=== PATIENT | female | born 1990 | race Caucasian/White ===

== ENCOUNTER 2020-11-17 16:32 | Inpatient (IN) | payer MEDICAID ==
[~2020-11-17] VITALS: Ht 170.2 cm; Wt 58.8 kg
[2020-11-17] MEDS ORDERED: SODIUM CHLORIDE 0.9% 1,000ML IVBOLUS ONE (17:00)
[2020-11-17 17:22] LABS: BASOPHILS % (AUTO) 2 % (0-1); EOSINOPHILS % (AUTO) 4 % (1-7); LYMPHOCYTES % (AUTO) 36 % (22-44); MEAN CORPUSCULAR HEMOGLOBIN 21.9 pg (27.0-34.8); MEAN CORPUSCULAR HGB CONC 32.1 g/dL (32.4-35.8); MEAN PLATELET VOLUME 7.4 fL (7.4-10.4); MONOCYTES % (AUTO) 11 % (2-9); NEUTROPHILS % (AUTO) 47 % (42-75); PLATELET COUNT 402 x10^3/uL (130-400); RED CELL DISTRIBUTION WIDTH 18.1 % (9.6-15.2)
[2020-11-17 17:43] LABS: ANION GAP 10 mmol/L (5-15); CALCIUM 9.7 mg/dL (8.5-10.1); CHLORIDE 86 mmol/L (98-107); CREATININE 0.76 mg/dL (0.55-1.02)
[2020-11-17 17:44] LABS: ALBUMIN 4.1 g/dL (3.4-5.0); TROPONIN I < 0.015 ng/mL (0.000-0.045)
--- NOTE | 2020-11-17 17:48 | NUR ---
LAB CALLED TO COMMUNICATE CRITICAL POTASSIUM OF 2.2. ERP MADE AWARE TO REPLE/ ALSO TO REPLETE MAGNESIUM
--- NOTE | 2020-11-17 17:53 | NUR ---
POTASSIUM REQUESTED FROM PHARMACY
[2020-11-17] MEDS ORDERED: MAGNESIUM SULFATE PMX 2GM/50ML 50 ML ONE (17:57)
[2020-11-17] MEDS ORDERED: POTASSIUM CHLORIDE 40 MEQ in SODIUM CHLORIDE 0.9% 500 ML IV ONE (18:00)
[2020-11-17] MEDS ORDERED: MAGNESIUM SULFATE PMX 2GM/50ML 50 ML IV ONE (18:00)
--- NOTE | 2020-11-17 18:20 | NUR ---
ELECTROLYTES INFUSING, NO CHANGE IN EXAM (NO FURTHER NEUROLOGIC ABNORMALITIES) DRINKING/EATING
--- NOTE | 2020-11-17 18:50 | NUR ---
RECIEVED REPORT FROM BAYRON LORD
--- NOTE | 2020-11-17 19:00 | NUR ---
report to risa caballero
[2020-11-17 19:16] LABS: <PLATELET ESTIMATE> INCREASED; <PLT MORPHOLOGY> NORMAL PLT MORPH; MICROCYTOSIS 2+
[2020-11-17 19:17] LABS: HYPOCHROMIA 2+
--- NOTE | 2020-11-17 19:29 | NUR ---
PATIENT GIVEN FOOD AND JUICE, RESTING COMFORTABLY ON THE GURNEY. NAD AT THIS TIME. WILL CONTINUE TO MONITOR.
[2020-11-17] MEDS ORDERED: ENALAPRILAT 1.25 MG/ML, 2ML IVPush PRN (19:30)
[2020-11-17] MEDS ORDERED: POLYETHYLENE GLYCOL 17 GM PACKET PO PRN (19:30)
[2020-11-17] MEDS ORDERED: BISACODYL 10 MG SUPP PR PRN (19:30)
[2020-11-17] MEDS ORDERED: hydrALAzine 20 MG/ML, 1ML IVPush PRN (19:30)
[2020-11-17] MEDS ORDERED: ONDANSETRON ODT 4 MG PO PRN (19:30)
[2020-11-17] MEDS ORDERED: DOCUSATE 100 MG CAPSULE PO PRN (19:30)
[2020-11-17] MEDS ORDERED: IBUPROFEN 600 MG TABLET PO PRN (19:30)
[2020-11-17] MEDS ORDERED: ONDANSETRON 2MG/ML, 2ML IVPush PRN (19:30)
[2020-11-17] MEDS ORDERED: ENOXAPARIN 40 MG/0.4 ML SQ SCH (19:30)
[2020-11-17] MEDS ORDERED: ACETAMINOPHEN 325 MG TABLET PO PRN (19:30)
[2020-11-17] MEDS ORDERED: POTASSIUM CHLORIDE 20 MEQ TAB.ER.PRT PO ONE (19:30)
[2020-11-17] MEDS ORDERED: ENOXAPARIN 40 MG/0.4 ML ONE (20:00)
[2020-11-17] MEDS ORDERED: POTASSIUM CHLORIDE 20 MEQ TAB.ER.PRT ONE (20:00)
--- NOTE | 2020-11-17 20:06 | NUR ---
PATIENT MEDICATED WITH KDUR AND LOVENOX PER MAY. AT THIS TIME.
--- NOTE | 2020-11-17 20:12 | NUR ---
Pt to be admitted to CARD TELE, room 525. Report called to linda.
[2020-11-17 20:44] VITALS: BP 92/58
[2020-11-17 21:17] VITALS: BP_SYST 107; BP_SYST 92; BP_SYST 95; BP_DIAS 62; BP_DIAS 66; BP_DIAS 70
[2020-11-17 23:36] LABS: TROPONIN I < 0.015 ng/mL (0.000-0.045)
[2020-11-18] MEDS: NS + 20MEQ KCL 1,000 ML IV SCH ×2 (00:03→08:16)
[2020-11-18 02:54] VITALS: BP_SYST 81; BP_SYST 92; BP_SYST 98; BP_DIAS 43; BP_DIAS 58; BP_DIAS 63
[2020-11-18 05:26] LABS: ANION GAP 4 mmol/L (5-15); CALCIUM 8.3 mg/dL (8.5-10.1); CHLORIDE 100 mmol/L (98-107)
[2020-11-18 05:35] LABS: BASOPHILS % (AUTO) 1 % (0-1); EOSINOPHILS % (AUTO) 8 % (1-7); LYMPHOCYTES % (AUTO) 56 % (22-44); MEAN CORPUSCULAR HEMOGLOBIN 22.1 pg (27.0-34.8); MEAN CORPUSCULAR HGB CONC 32.1 g/dL (32.4-35.8); MEAN PLATELET VOLUME 7.7 fL (7.4-10.4); MONOCYTES % (AUTO) 9 % (2-9); NEUTROPHILS % (AUTO) 26 % (42-75); PLATELET COUNT 356 x10^3/uL (130-400); RED BLOOD COUNT 4.74 x10^6/uL (3.82-5.3); RED CELL DISTRIBUTION WIDTH 18.1 % (9.6-15.2)
[2020-11-18 05:37] LABS: CREATININE 0.71 mg/dL (0.55-1.02); TROPONIN I < 0.015 ng/mL (0.000-0.045)
[2020-11-18 08:24] VITALS: BP 90/53
[2020-11-18] MEDS ORDERED: POTASSIUM CHLORIDE 20 MEQ TAB.ER.PRT PO ONE (08:30)
[2020-11-18 08:43] LABS: ALBUMIN 2.9 g/dL (3.4-5.0); BILIRUBIN, DIRECT 0.1 mg/dL (0.1-0.2)
[2020-11-18 08:45] LABS: BILIRUBIN,INDIRECT 0.2 mg/dL (0.0-2.0); BILIRUBIN,TOTAL 0.3 mg/dL (0.2-1.0); TOTAL PROTEIN 6.3 g/dL (6.4-8.2)
== END 2020-11-18 15:07 | disposition left against medical advice (07) | DRG 425 ==
LOC: ED 19:08 → EDIP 19:23 → 5SO 20:29
PROVIDERS: ADMIT Internal Medicine; ATTEND Internal Medicine
DX: E87.6 Hypokalemia (principal); F50.2 Bulimia nervosa; R56.9 Unspecified convulsions; E87.1 Hypo-osmolality and hyponatremia; E88.09 Other disorders of plasma-protein metabolism, not elsewhere classified; F12.90 Cannabis use, unspecified, uncomplicated; F17.200 Nicotine dependence, unspecified, uncomplicated; Z53.29 Procedure and treatment not carried out because of patient's decision for other reasons; R55 Syncope and collapse; R71.8 Other abnormality of red blood cells; R94.31 Abnormal electrocardiogram [ECG] [EKG]; R00.2 Palpitations; F41.0 Panic disorder [episodic paroxysmal anxiety]; I10 Essential (primary) hypertension; Z59.0 Homelessness; Z82.3 Family history of stroke; Z82.49 Family history of ischemic heart disease and other diseases of the circulatory system; Z83.3 Family history of diabetes mellitus; Z86.16 Personal history of COVID-19; Z86.59 Personal history of other mental and behavioral disorders; Z88.8 Allergy status to other drugs, medicaments and biological substances
CPT/HCPCS: 36415; 71045; 80048; 80076; 82040; 83735; 84443; 84484; 84703; 85025; 93005; 93306; 96374; 99285; G0378; J1650; J3480; J3475; J7030; J7040